=== PATIENT | male | born 1995 | race African-American/Black ===

== ENCOUNTER 2019-10-05 16:07 | Emergency (ER) | payer SELFPAY ==
[~2019-10-05] VITALS: Ht 185.4 cm; Wt 90.0 kg
[2019-10-05] MEDS ORDERED: IBUPROFEN 600MG TABLET PO ONE (18:00)
[2019-10-05 19:05] VITALS: BP 118/78
== END 2019-10-05 19:05 | disposition home or self-care (01) ==
LOC: ER 16:07
DX: M54.2 Cervicalgia (principal)
CPT/HCPCS: 71045; 72040; 99284